=== PATIENT | female | born 1980 | race Caucasian/White ===

== ENCOUNTER 2018-03-09 06:13 | Day surgery (SDC) | payer OTHER ==
[2018-03-06 08:38] VITALS: BMI 41.6
[2018-03-09] MEDS ORDERED: HEPARIN NA (PORCINE) 5,000 UNITS/ML 1ML VIAL ONE (07:39)
[2018-03-09] MEDS ORDERED: THROMBIN (BOVINE) 5,000 UNIT VIAL TP ONE (07:39)
[2018-03-09 08:45] VITALS: TEMP 98.3
[2018-03-09] MEDS ORDERED: LACTATED RINGERS SOLUTION 1,000 ML IV SCH (09:00)
[2018-03-09 10:21] VITALS: BP 145/76; PULSE 83
== END 2018-03-09 09:20 | disposition home or self-care (01) ==
LOC: JASU-SURG 06:13 → UNDOADMIN 06:13 → JSAMEDAYSX 06:13 → EDSTATUS 08:00 → UNDODISIN 09:19 → JASU-SURG 09:20
PROVIDERS: ATTEND Orthopaedic Surgery Orthopaedic Surgery of the Spine
PROC: 0RB30ZZ Excision of Cervical Vertebral Disc, Open Approach (ICD-10-PCS; principal; 2018-03-09)
DX: Z53.8 Procedure and treatment not carried out for other reasons (principal)
CPT/HCPCS: 84703; 86850; 86900; 86901; J1644

== ENCOUNTER 2018-03-23 09:27 | Inpatient (IN) | payer OTHER, BC ==
[2018-03-23] MEDS ORDERED: ONDANSETRON 4 MG/2 ML VIAL IVPUSH PRN ×2 (14:01→18:30)
[2018-03-23] MEDS ORDERED: MIDAZOLAM HCL 2 MG/2 ML SINGLE DOSE VIAL ONE ×4 (14:09→15:30)
[2018-03-23] MEDS ORDERED: fentaNYL CITRATE 250 MCG/5 ML VIAL ONE ×2 (14:09→15:25)
[2018-03-23] MEDS ORDERED: KETOROLAC TROMETHAMINE 30 MG/1 ML VIAL ONE (14:09)
[2018-03-23] MEDS ORDERED: PROPOFOL 20 ML ONE ×12 (14:10→17:32)
[2018-03-23] MEDS ORDERED: LACTATED RINGERS SOLUTION 1,000 ML IV SCH (14:15)
[2018-03-23] MEDS ORDERED: HYDROmorphone *PCA* 10MG/50ML DISP.SYRIN PCA SCH (14:15)
[2018-03-23] MEDS ORDERED: VANCOMYCIN 1,000 MG VIAL (RESTRICTED TO ID ONLY) ONE (14:17)
[2018-03-23] MEDS ORDERED: ceFAZolin SODIUM 1 GM VIAL ONE (14:17)
[2018-03-23] MEDS ORDERED: DEXAMETHASONE SOD PHOSPHATE 4 MG/1 ML VIAL ONE ×2 (14:17→16:02)
[2018-03-23] MEDS ORDERED: KETAMINE HCL 200 MG/20 ML VIAL ONE (14:19)
[2018-03-23] MEDS ORDERED: THROMBIN (BOVINE) 5,000 UNIT VIAL TP ONE ×2 (15:06→16:10)
[2018-03-23] MEDS ORDERED: GLYCOPYRROLATE 0.2 MG/1 ML VIAL ONE ×2 (15:22→16:17)
[2018-03-23] MEDS ORDERED: ceFAZolin SODIUM 1 GM VIAL IVPB ONE (15:31)
[2018-03-23] MEDS ORDERED: VANCOMYCIN 1,000 MG VIAL (RESTRICTED TO ID ONLY) IVPB ONE (15:34)
[2018-03-23] MEDS ORDERED: SUCCINYLCHOLINE CHLORIDE 200 MG/10 ML VIAL ONE (15:53)
[2018-03-23] MEDS ORDERED: ROCURONIUM BROMIDE 50 MG/5 ML VIAL ONE (15:54)
[2018-03-23] MEDS ORDERED: GELATIN, ABSORBABLE 100 EACH SPONGE TP ONE (16:10)
[2018-03-23] MEDS ORDERED: NEOSTIGMINE METHYLSULFATE 0.5 MG/ML - 10 ML MDV ONE (16:18)
[2018-03-23] MEDS ORDERED: LIDOCAINE HCL 2% 100 MG/5 ML DISP.SYRIN ONE ×2 (16:25→17:26)
[2018-03-23] MEDS ORDERED: HYDROmorphone *PCA* 10MG/50ML DISP.SYRIN PCA ONE (18:21)
--- NOTE | 2018-03-23 18:26 | PN ---
Progress Note (short form) - Note Progress Note: 38F s/p C4-5, C5-6 ACDF POD #0. -Admit to ICU x 24 hrs. for airway observation; OK to downgrade to floor 2017 if airway stable. -Pain medication: per anaesthesia team. -DVT PPx: -Mechanical only: BELEN's, SCD's. -Incentive spirometry. -PT/OT/Rehab, OOB. -WBAT B/L UE & LE. -Keep dressing clean & dry. -No heavy lifting, bending or twisting. -Puree diet; advance as tolerated. -B/L UE & LE NV checks. -Care per primary medical hospitalist team. -Discharge planning: f/u [facility] [place] office 04/02/2018; call for appointment; . -Will follow. Walter Delcid MD (Orthopaedic Surgery).
--- NOTE | 2018-03-23 18:26 | OP ---
Operative Note - Note: Operative Date: 03/23/18 Pre-Operative Diagnosis: Post-traumatic cervical spondylotic myelopathy Operation: C4-5, C5-6 ACDF Post-Operative Diagnosis: Same as Pre-op Surgeon: Walter Delcid Field Cashier: Amandeep Delcid Anesthesiologist/MANAGEMENT ACCOUNTANT: Israel Nathan Anesthesia: General Specimens Removed: C4-5, C5-6 disks Estimated Blood Loss (mls): 20 Fluid Volume Replaced (mls): 1,300 Operative Report Dictated: Yes
[2018-03-23] MEDS ORDERED: ceFAZolin 2 GRAM PREMIX BAG IVPB SCH (18:30)
[2018-03-23] MEDS ORDERED: diazePAM CARPU-JECT 10 MG/2 ML DISP.SYRIN IVPUSH PRN (18:30)
[2018-03-23] MEDS ORDERED: traMADol HCL 50 MG TABLET PO PRN (18:30)
[2018-03-23] MEDS ORDERED: oxyCODONE HCL 5 MG TABLET PO PRN ×2 (18:30)
[2018-03-23] MEDS ORDERED: ALBUTEROL SO4 18 GM HFA INHALER IH PRN (19:33)
[2018-03-23] MEDS: LACTATED RINGERS SOLUTION 1,000 ML IV SCH (20:00)
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
[2018-03-23 21:02] VITALS: BMI 42.3
[2018-03-23] MEDS: CEFAZOLIN 2 GM/D5W 2 GM/50 ML ML IVPB SCH (23:09)
[2018-03-23] MEDS: CYCLOBENZAPRINE HCL 10 MG TABLET (FP) PO SCH (23:11)
[2018-03-23] MEDS: ACETAMINOPHEN 325 MG TABLET (FP) PO SCH (23:11)
--- NOTE | 2018-03-24 00:45 | OP ---
DATE OF OPERATION: 03/23/2018 SURGEON: Walter Delcid M.D. GEAR CUTTING MACHINE OPERATOR: Amandeep Delcid M.D. PREOPERATIVE DIAGNOSIS: C4-5 and C5-6 disk prolapse with cervical spondylogenic myelopathy and left C6 radiculopathy. POSTOPERATIVE DIAGNOSIS: C4-5 and C5-6 disk prolapse with cervical spondylogenic myelopathy and left C6 radiculopathy. OPERATION PERFORMED: 1. Anterior cervical diskectomy with fusion C4-5 and C5-6. 2. Partial colpectomy C4-5 and C6. 3. Insertion of cage (Tetrafuse). 4. Anterior plating with a 35-mm simplicity precision anterior cervical plate. 5. Use of allograft putty. ANTIBIOTICS GIVEN: 2 g Kefzol, 1 g vancomycin, 10 mg Decadron given. ANESTHESIA: General. DESCRIPTION OF PROCEDURE: Patient correctly identified, placed supine on the operating room table. Neuromonitoring was utilized. Time out was called. Imaging was available for intraoperative evaluation. An oblique incision along the line of Delvin at the 11 o'clock at the level of the cricothyroid interval, biased to the right-hand side, the incision was made in the lines of Delvin. The dissection was taken to the subcutaneous fascia and platysma, platysma split longitudinally. The dissection was taken to the level of the investing fascia. The investing fascia was opened. Then, thereafter, an [place] was placed around the right side of the viscera, pharynx and larynx, retracted, and then the longus coli freed off the actual vertebral bodies after the entire space had been opened up using a peanut to go ahead with blunt dissection. Hemostasis achieved with a bipolar Bovie. The longus coli was dissected off the bone at C4-5 and 6, both the left and right-hand sides. An 18-gauge bent needle was placed in the C4-5 for verification levels. The both disks were dealt with in the exact same way using a [place] distractor, the annulus was resected off the bone bed using a unipolar Bovie. The entire disk was removed using curets. The end plates freed completely of disc material using a Midas toby 40- mm diameter bur. The bone was resected, thus creating the appropriate rectangle by removing the anterior lip of the bone bed, and then into the joints of Luschka accordingly, bringing about a complete rectangular freeing of the bone bed completely, a size 6 cage was utilized. This was Tetrafuse 6 degree lordosis filled with Osteofil bone marrow and autologous bone putty. The cage seated well within the actual bone. The distractor device was released, and the entire cage collapsed , the ligamentous attachments enabled the cage to press fit as the bony elements collapsed onto the cage. The exact same procedure was performed at C5-6, except a size 7 cage was utilized. A size 35 mm simplicity plate was then utilized. Six screws utilized, these were 12 x 4 mm screws. This brought about solid fixation accordingly. The wounds were thoroughly lavaged. Tissues closed as well as platysma with 3-0 Vicryl with subcutaneous tissue, skin 3-0 Monocryl, and Steri-Strips. No complications. Intraoperative x-rays revealed excellent seating of all the implants. MD PRIMITIVO Madsen/[id number] MTDD
[2018-03-24] MEDS: ACETAMINOPHEN 325 MG TABLET (FP) PO SCH ×5 (01:04→23:49)
[2018-03-24] MEDS: LACTATED RINGERS SOLUTION 1,000 ML IV SCH (05:16)
[2018-03-24] MEDS: CEFAZOLIN 2 GM/D5W 2 GM/50 ML ML IVPB SCH (05:33)
[2018-03-24 06:43] LABS: HEMATOCRIT 33.2 % (32.4-45.2); HEMOGLOBIN 11.5 GM/dL (10.7-15.3); MCH 31.8 pg (25.7-33.7); MCHC 34.8 g/dl (32.0-36.0); MEAN CELL VOLUME 91.4 fl (80-96); MEAN PLT VOLUME 7.1 fl (7.5-11.1); PLATELET COUNT 323 K/MM3 (134-434); RBC 3.63 M/mm3 (3.60-5.2); RDW 12.3 % (11.6-15.6); WHITE BLOOD COUNT 15.2 K/mm3 (4.0-10.0)
[2018-03-24 07:03] LABS: ANION GAP 6 (8-16); BLOOD UREA NITROGEN 9 mg/dL (7-18); CALCIUM 8.3 mg/dL (8.5-10.1); CHLORIDE 103 mmol/L (98-107); CO2 27 mmol/L (21-32); CREATININE 0.5 mg/dL (0.55-1.02); GLUCOSE,RANDOM 114 mg/dL (74-106); SODIUM 136 mmol/L (136-145)
--- NOTE | 2018-03-24 13:25 | PN ---
Progress Note (short form) - Note Progress Note: Anesthesia/Pain Pt seen and examined S:Alert and awake comfortable O: Vital Signs Temperature 98.5 F 03/24/18 06:00 Pulse Rate 77 03/24/18 08:00 Respiratory Rate 13 03/24/18 08:18 Blood Pressure 127/71 03/24/18 08:00 O2 Sat by Pulse Oximetry (%) 100 03/24/18 08:18 CBC, BMP 03/24/18 06:15 03/24/18 06:15 A/P: Current Active Problems Asthma (Acute) Radiculopathy (Acute) S/P cervical discectomy (Acute) s/p Doing well post op uses STAFF ACCOUNTANT Continue current care Nick Houston MD
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
[2018-03-24] MEDS: CYCLOBENZAPRINE HCL 10 MG TABLET (FP) PO SCH (21:47)
[2018-03-25] MEDS: ACETAMINOPHEN 325 MG TABLET (FP) PO SCH ×3 (06:13→18:29)
[2018-03-25] MEDS ORDERED: ONDANSETRON 4 MG/2 ML VIAL IVPUSH PRN (06:19)
[2018-03-25] MEDS ORDERED: diazePAM CARPU-JECT 10 MG/2 ML DISP.SYRIN IVPUSH PRN (06:19)
[2018-03-25] MEDS ORDERED: oxyCODONE HCL 5 MG TABLET PO PRN (06:19)
[2018-03-25] MEDS ORDERED: ALBUTEROL SO4 18 GM HFA INHALER IH PRN (06:19)
[2018-03-25 06:21] LABS: BASO % 0.3 % (0-2.0); EOS % 0.4 % (0-4.5); HEMATOCRIT 32.2 % (32.4-45.2); LYMPH % 25.5 % (8-40); MCH 31.7 pg (25.7-33.7); MCHC 34.3 g/dl (32.0-36.0); MEAN CELL VOLUME 92.4 fl (80-96); MEAN PLT VOLUME 7.1 fl (7.5-11.1); NEUT % 64.8 % (42.8-82.8); PLATELET COUNT 275 K/MM3 (134-434); RBC 3.48 M/mm3 (3.60-5.2); RDW 12.4 % (11.6-15.6)
[2018-03-25] MEDS: HYDROmorphone *PCA* 10MG/50ML DISP.SYRIN PCA SCH (06:42)
--- NOTE | 2018-03-25 10:36 | PN ---
Progress Note (short form) - Note Progress Note: Post op day#1.Patient stable and c/o pain score of 4-5/10.Will DC BONDING MACHINE SETTER and put patient on PO pain medication.No any anesthesia related problem.Patient DC from the anesthesia care.
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
[2018-03-25] MEDS: traMADol HCL 50 MG TABLET PO PRN ×2 (15:05→20:33)
--- NOTE | 2018-03-25 18:41 | PATH ---
Surgical Pathology Report Patient Name: SANTIAGO MANSFIELD [facility]. Rec. #: [id number] /Age/Gender: 1980 (Age: 38) / F Account: [id number] Location: 4 PEDS/ADOL Taken: 03/23/2018 Received: 03/24/2018 Reported: 03/25/2018 Physicians: Walter Delcid M.D. Specimen(s) Received C4/5-C5/6 DISC Clinical History Cervical disc disorder with radiculopathy Final Diagnosis C4/5, C5/6 DISC, DISCECTOMY: FIBROCARTILAGINOUS TISSUE WITH DEGENERATIVE CHANGE. Electronically Signed Lacie Jeffrey M.D. Gross Description Received in formalin labeled "C4/5, C5/6 disc," is a 4.5 x 3.5 x 0.4 cm aggregate of kenney fragments of fibrocartilaginous tissue. A field sales representative portion is submitted in one cassette. 03/24/2018 [facility]03/24/2018
[2018-03-25] MEDS: oxyCODONE HCL 5 MG TABLET PO PRN (21:55)
[2018-03-25] MEDS ORDERED: CYCLOBENZAPRINE HCL 10 MG TABLET (FP) PO SCH (22:00)
[2018-03-25] MEDS: GABAPENTIN 300 MG CAPSULE (FP) PO SCH (22:08)
[2018-03-26] MEDS: ACETAMINOPHEN 325 MG TABLET (FP) PO SCH ×3 (00:11→12:00)
[2018-03-26] MEDS: HYDROmorphone *PCA* 10MG/50ML DISP.SYRIN PCA SCH (05:58)
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
[2018-03-26 09:19] VITALS: BP 152/87; PULSE 90; TEMP 98
[2018-03-26] MEDS: oxyCODONE HCL 5 MG TABLET PO PRN (09:22)
[2018-03-26] MEDS: GABAPENTIN 300 MG CAPSULE (FP) PO SCH (09:23)
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
== END 2018-03-26 14:05 | disposition home or self-care (01) | DRG 321 ==
LOC: FM/S 09:27 → JSAMEDAYSX 10:22 → JICU 20:10 → J4S 03-25 06:40
PROVIDERS: ADMIT Orthopaedic Surgery Orthopaedic Surgery of the Spine; ATTEND Nurse Practitioner Acute Care
PROC: 0RG10A0 Fusion of Cervical Vertebral Joint with Interbody Fusion Device, Anterior Approach, Anterior Column, Open Approach (ICD-10-PCS; 2018-03-23)
PROC: 0RB30ZZ Excision of Cervical Vertebral Disc, Open Approach (ICD-10-PCS; principal; 2018-03-23 11:20)
DX: M47.12 Other spondylosis with myelopathy, cervical region (principal); M50.122 Cervical disc disorder at C5-C6 level with radiculopathy; J45.909 Unspecified asthma, uncomplicated; Z88.0 Allergy status to penicillin
CPT/HCPCS: 36415; 76000-TC-FY; 80048; 84703; 85025; 85027; 86850; 86900; 86901; 88304-TC; 94010; 94760; 97116-GP; 97161-GP

== ENCOUNTER 2020-07-21 08:20 | Day surgery (SDC) | payer BC, OTHER ==
[2020-07-17 13:22] VITALS: BMI 46.0
--- OUTSIDE RECORDS SUMMARY | 2020-07-21 08:42 | XMS ---
:1980 Author Organization [facility] Support Name Relationship Address Phone UE, UNEMPLOYED Unavailable Unavailable Unavailable UE Unavailable Unavailable Unavailable EVELINA MANSFIELD [address] [facility] [place] [address] Re-disclosure Warning The records that you are about to access may contain information from federally- assisted alcohol or drug abuse programs. If such information is present, then the following federally mandated warning applies: This information has been disclosed to you from records protected by federal confidentiality rules (42 CFR part 2). The federal rules prohibit you from making any further disclosure of this information unless further disclosure is expressly permitted by the written consent of the person to whom it pertains or as otherwise permitted by 42 CFR part 2. A general authorization for the release of medical or other information is NOT sufficient for this purpose. The Federal rules restrict any use of the information to criminally investigate or prosecute any alcohol or drug abuse patient.The records that you are about to access may contain highly sensitive health information, the redisclosure of which is protected by Article 27-F of the [facility] Public Health law. If you continue you may haveaccess to information: Regarding HIV / AIDS; Provided by facilities licensed or operated by the [facility] Office of Mental Health; or Provided by the [facility] Office for People With Developmental Disabilities. If such information is present, then the following [facility] mandated warning applies: This information has been disclosed to you from confidential records which are protected by state law. State law prohibits you from making any further disclosure of this information without the specific written consent of the person to whom it pertains, or as otherwise permitted by law. Any unauthorized further disclosure in violation of state law may result in a fine or mcc sentence or both. A general authorization for the release of medical or other information is NOT sufficient authorization for further disclosure. Allergies and Adverse Reactions Type Description Substance Reaction Status Data Source(s ) [facility] CODE[facility] Codeine [facility]) ASPIRIN Aspirin NEXTGEN ([facility]) DRUG INGREDI ASPIRIN ASPIRIN Rash Low Swelling [facility] Low Drug Class PENICILLINS PENICILLINS Swelling [facility] DRUG INGREDI CODEINE CODEINE Swelling [facility] Encounters Encounter Providers Location Date Indications Data Source(s ) Outpatient 07/12/2020 10:07:00 NEXTG EN ([facility]) Outpatient 07/11/2020 09:11:00 N[facility] EN ([facility]) Outpatient 07/07/2020 08:31:00 NEXTG EN ([facility]) Outpatient 07/06/2020 09:09:00 NEXTG EN ([facility]) Outpatient 06/28/2020 08:26:00 NEXTG EN ([facility]) Outpatient 06/01/2020 09:39:00 NEXTG EN ([facility]) Outpatient 05/31/2020 09:44:00 NEXTG EN ([facility]) Outpatient 05/13/2020 08:12:00 NEXTG EN ([facility] Outpatient 05/12/2020 08:49:00 NEXTG EN ([facility]) Outpatient 05/02/2020 08:38:00 NEXTG EN ([facility] Outpatient 05/01/2020 06:57:00 NEXTG EN ([facility]) Outpatient 12/23/2019 08:08:00 NEXTG EN ([facility]) Outpatient 12/22/2019 08:04:00 NEXTG EN ([facility]) Outpatient 10/27/2019 09:31:00 NEXTG EN ([facility]) Outpatient 10/26/2019 07:54:00 NEXTG EN ([facility]) Insurance Providers Payer name Policy Policy ID Covered Covered Policy Plan Info rmation type / democrat ID democrat's Mooney Coverage relationship type to mooney BC POS [id number] S [id number] [employer] [id number] SP [id number] NF GENERIC [id number] Self 03 [id number] Results ID Date Data Source [id number] 07/17/2020 11:12:00 AM EDT [facility] Name Value Range Interpretation Description Data Sup porting Code Source(s) Document(s ) SARS [facility] coronavirus 2 RNA This lab was ordered by [facility] and reported by [facility]. Procedure
--- NOTE | 2020-07-21 08:45 | PN ---
Progress Note (short form) - Note Progress Note: 40F s/p LEFT shoulder open Scott procedure, Neer Decompression, and rotator cuff repair POD #0. -Pain control: Vicodin. -Incentive spirometry. -No chemical DVT PPx. -LUE abduction sling. -Begin LEFT shoulder pendulum swings when pain controlled. -Daily LEFT elbow, wrist & hand ROM. -Keep dressing clean & dry. -f/u in [facility] within 7-10 days; call for appointment; . Amandeep Delcid MD (Orthopaedic Surgery).
--- NOTE | 2020-07-21 08:46 | OP ---
Operative Note - Note: Operative Date: 07/21/20 Pre-Operative Diagnosis: Traumatic left shoulder impingement syndrome with associated rotator cuff derangement Operation: Left shoulder open: 1. Scott procedure. 2. Neer decompression. 3. Rotator cuff repair (articular-sided) Post-Operative Diagnosis: Same as Pre-op Surgeon: Amandeep Delcid Three Dimensional Art Instructor: Walter Delcid Anesthesiologist/SPRAY MACHINE OPERATOR: Bret Regan Anesthesia: General, Regional Specimens Removed: Excision arthroplasty left shoulder Estimated Blood Loss (mls): 25 Fluid Volume Replaced (mls): 800 Operative Report Dictated: Yes
--- NOTE | 2020-07-21 08:47 | HP ---
History & Physical Update - Physical Physical: No Change - Assessment Assessment: No Change - Plan Plan: No Change
[2020-07-21] MEDS ORDERED: MIDAZOLAM HCL 2 MG/2 ML SINGLE DOSE VIAL ONE ×2 (10:13→11:23)
[2020-07-21] MEDS ORDERED: ROPIVACAINE HCL 0.5% 30ML VIAL ONE (10:13)
[2020-07-21] MEDS ORDERED: BENZOIN/ALOE VERA/STORAX/TOLU 58 ML BOTTLE ONE (10:38)
[2020-07-21] MEDS ORDERED: methylPREDNISolone NA SUCC 125 MG/2 ML VIAL ONE (11:16)
[2020-07-21] MEDS ORDERED: ONDANSETRON 4 MG/2 ML VIAL ONE ×2 (11:16→12:48)
[2020-07-21] MEDS ORDERED: ceFAZolin SODIUM 1 GM VIAL ONE (11:16)
[2020-07-21] MEDS ORDERED: KETOROLAC TROMETHAMINE 30 MG/1 ML VIAL ONE (11:16)
[2020-07-21] MEDS ORDERED: ONDANSETRON 4 MG/2 ML VIAL IVPUSH PRN (11:35)
[2020-07-21] MEDS ORDERED: PROMETHAZINE HCL 25 MG/1 ML VIAL IVPUSH PRN (11:35)
[2020-07-21] MEDS ORDERED: oxyCODONE HCL 5 MG TABLET PO PRN (11:35)
[2020-07-21] MEDS ORDERED: LACTATED RINGERS SOLUTION 1,000 ML IV SCH (11:45)
[2020-07-21] MEDS ORDERED: PROPOFOL 20 ML ONE (11:46)
[2020-07-21] MEDS ORDERED: EPHEDRINE SULFATE/0.9% NACL/PF 50 MG/10 ML SYRINGE NR ONE (12:02)
[2020-07-21] MEDS ORDERED: ALBUTEROL SO4 HFA INHALER IH PRN (12:51)
[2020-07-21] MEDS ORDERED: LIDOCAINE 5% TOPICAL PATCH TP SCH (13:00)
[2020-07-21 15:18] VITALS: TEMP 97.7
[2020-07-21 15:20] VITALS: BP 144/89; PULSE 116
--- NOTE | 2020-07-21 20:05 | OP ---
Date of Operation: 07/21/2020 Surgeon: Amandeep Delcid MD Machine Shop Repair Technician: Walter Delcid MD Pre-Operative Diagnosis: Left shoulder traumatic: 1. Impingement syndrome. 2. Rotator cuff tear. Post-Operative Diagnosis: Left shoulder traumatic: 1. Impingement syndrome. 2. Rotator cuff tear. Surgical Procedure: Left shoulder open: 1. Scott procedure (distal clavicle excision); (47463). 2. Neer decompression (undercutting acromioplasty and coraco-acromial ligament release); (04327). 3. Primary rotator cuff repair; (21153). Findings: 1. Partial thickness supraspinatus tear (articular-sided). Anesthesia: General (LMA), Regional (interscalene block). Position: Beach chair. Incision: Oblique. Estimated Blood Loss: 25cc. Intravenous Fluid: 800cc crystalloid. Specimens: Excision arthroplasty left AC joint. Drains: None. Complications: None. Urine output: None. Bacteriology: None. Transfusions: None. Closure: #1 Vicryl. 3-0 Biosyn. Indications: The patient is a 40 year old female who was indicated for an open left shoulder distal claviculectomy (Scott procedure), coraco-acromial ligament release & Acromioplasty (Neer Decompression), and possible rotator cuff repair in order to ameliorate the symptoms associated with traumatic shoulder impingement syndrome and associated rotator cuff pathology. The patient was identified in the holding area by her armband. A long discussion was held with the patient regarding the risks, benefits and alternatives of the above-named procedure. Risks include but are not limited to: pain, bleeding, infection, damage to surrounding structures (including nerves, blood vessels, skin, ligaments, tendons and bone), reflex sympathetic dystrophy (RSD), wound complications, failure of repair, need for further surgery, blood clots, myocardial infarction, pulmonary embolism, anesthesia complications, compartment syndrome, limb loss, limp, loss of function, cerebrovascular event, and . Benefits as mentioned above. Alternatives include no surgery. All questions were answered. The patient understood and agreed to the procedure. Informed consent was obtained, witnessed and verified. The patients correct operative limb - the left upper extremity - was marked, and the anesthesia team administered an ipsilateral interscalene nerve block. The patient was then taken to the operating room after being seen by the anesthesia and nursing staff. Procedure: The patient was brought into the operating room, placed supine on the OR table and secured with a safety strap. Consent and the operative site was again verified with the patient and nursing and anaesthesia staff. Anaesthesia & antibiotics were then administered without complication. A time-out was done led by , the attending surgeon. The patient was positioned with all bony prominences well padded. A soft bump was placed under the inferior pole of the ipsilateral scapula and the patient was placed in a beach chair position. The operative limb was prepped in standard sterile fashion using betadine prep & scrub, wiped off with alcohol, DuraPrep then applied, and then free draped. A time-out was repeated, and the case began. An incision was made in the lines of Delvin from the coracoid process to the midbody of the acromion. The deltoid was identified and protected. Subcutaneous dissection was carried with electrocautery down to the level of the distal clavicle. With the distal clavicle exposed, sharp Hohmann retractors were placed around the inferior aspects of the anterior and posterior surfaces of the distal clavicle to elevate it. The acromioclavicular (AC) joint was clearly identified and the anterior AC ligament was incised using a 15-blade. The distal 1cm of the clavicle was marked for excision. An oscillating saw was used to perform a distal clavicular osteotomy. A beveled angular cut was made to avoid leaving a sharp inferior corner to impinge on the rotator cuff below. The excision arthroplasty of the distal clavicle was completed and excised from its capsular attachments using electrocautery. The soft tissues of the joint were saved for later closure. Throughout the case, hemostasis was assured using either monopolar or bipolar electrocautery. Next, the deltoid was elevated using an [facility] retractor, revealing the coraco-acromial (CA) ligament below. The CA ligament was incised longitudinally using a fresh 15-blade. The CA ligament was then fully released proximally and distally using Metzenbaum scissors. With the CA ligament fully decompressed, the subacromial space became accessible. This space was tight, confirming significant impingement. The AC joint capsule was neatly dissected to expose the distal acromion. A blunt Hohmann retractor was placed on the undersurface of the acromion, levering the humeral head down, and protecting the underlying structures. Next, the oscillating saw was used to osteotomize the undersurface of the acromion with a beveled cut. A straight 1/2" osteotome was used to complete the cut and to free the excised segment of bone. The osteotomized acromioplasty bone fragment was then removed using a rongeur with electrocautery to release any soft tissue attachments. Next, with finger palpation, an entire finger was delivered into the sub- acromial space and bursal adhesions were released using manual finger debridement. The shoulder was then taken through a full range of motion were thick, fibrotic subacromial bursal tissue was identified. This thick curtain of tissue was partially excised revealing a partial thickness, articular-sided tear of the supraspinatus tendon. This was evidence by a band of hyperemia within the supraspinatus tendon, although the bursal side of the tendon was completely intact. A single #1 vicryl suture was used in simple interrupted fashion to bridge and repair the rotator cuff derangement. The wound was copiously irrigated throughout the case using normal saline solution. Hemostasis was assured and the wound was closed primarily using #1 Vicryl sutures. The skin was closed using a 3-0 Biosyn subcuticular suture. A sterile, compressive dressing was applied. The sponge and needle counts were correct at the end of the case and I, the attending surgeon, was present and scrubbed throughout the case. The patient was then transferred to a hospital stretcher and to the recovery room in stable condition, having tolerated the procedure well. An abduction sling was applied at the end of the case. MD PRIMITIVO Davalos/[id number] MTDD
[2020-07-21] MEDS ORDERED: LIDOCAINE PATCH REMOVAL MC SCH (22:00)
--- NOTE | 2020-07-27 10:51 | OP ---
DATE OF OPERATION: 07/21/2020 PREOPERATIVE DIAGNOSIS: Traumatic left shoulder impingement syndrome with associated rotator cuff derangement. OPERATION: Left shoulder open Scott procedure, Neer decompression, rotator cuff repair. SURGEON: Amandeep Delcid MD MANUFACTURING MECHANIC: Walter Delcid MD ESTIMATED BLOOD LOSS: 25 mL Amandeep Delcid MD DS/[id number]
--- NOTE | 2020-07-27 12:04 | PATH ---
Surgical Pathology Report Patient Name: SANTIAGO MANSFIELD Med. Rec. #: [id number] /Age/Gender: 1980 (Age: 40) / F Account: [id number] Location: [facility] AMB[facility] Taken: 07/21/2020 Received: 07/21/2020 Reported: 07/27/2020 Physicians: Amandeep Delcid M.D. Specimen(s) Received EXCISION ARTHROPLASTY LEFT AC JOINT Clinical History Left shoulder traumatic impingement syndrome and rotator cuff tear Final Diagnosis AC JOINT, LEFT, EXCISION ARTHROPLASTY: CARTILAGE-CAPPED BONE WITH NO PATHOLOGIC FINDINGS. Electronically Signed Jeannie Monique M.D. Gross Description Received in formalin labeled "excision arthroplasty left AC joint," are 3 kenney-yellow portions of bone ranging from 1.0 x 0.5 x 0.2 cm to 2.2 x 1.4 x 1.1 cm. Book Salesman sections are submitted in one cassette, following decalcification. /07/24/2020 saudi/07/24/2020
== END 2020-07-21 15:00 | disposition home or self-care (01) ==
LOC: FASU 08:20
PROVIDERS: ATTEND Orthopaedic Surgery Adult Reconstructive Orthopaedic Surgery
PROC: 0PBB0ZZ Excision of Left Clavicle, Open Approach (ICD-10-PCS; principal; 2020-07-21 11:45)
PROC: 0MN20ZZ Release Left Shoulder Bursa and Ligament, Open Approach (ICD-10-PCS; 2020-07-21 11:45)
PROC: 0LQ20ZZ Repair Left Shoulder Tendon, Open Approach (ICD-10-PCS; 2020-07-21 11:45)
DX: M75.122 Complete rotator cuff tear or rupture of left shoulder, not specified as traumatic (principal); M75.42 Impingement syndrome of left shoulder
CPT/HCPCS: 84703; 88304-TC; 94760